=== PATIENT | female | born 1940 | race Caucasian/White ===

== ENCOUNTER → 2021-04-15 | Outpatient (CLI) | payer MEDICARE | END | disposition home or self-care (01) | LOC: CFH 09:14 | PROVIDERS: ATTEND Internal Medicine Hematology & Oncology | DX: C79.51 Secondary malignant neoplasm of bone (principal); C50.111 Malignant neoplasm of central portion of right female breast; Z85.3 Personal history of malignant neoplasm of breast | CPT/HCPCS: 77062; 77066; 78815; A9552; G0279 ==

== ENCOUNTER 2021-04-20 08:21 | Day surgery (SDC) | payer MEDICARE ==
[~2021-04-20] VITALS: Ht 167.6 cm; Wt 61.1 kg
[2021-04-20] MEDS ORDERED: OMEP-110 PO (08:56)
[2021-04-20] MEDS ORDERED: TAMO20TA PO (08:56)
[2021-04-20] MEDS ORDERED: ACET-1600 PO (08:56)
[2021-04-20] MEDS ORDERED: NAPR220C2 PO (08:56)
[2021-04-20 09:02] VITALS: BP 178/103
[2021-04-20] MEDS ORDERED: CHLORHEXIDINE 15 ML UDC ONE (09:25)
[2021-04-20] MEDS ORDERED: CHLORHEXIDINE 15 ML UDC PO ONE (09:30)
[2021-04-20] MEDS ORDERED: SODIUM CHLORIDE 0.9% 1,000 ML IV SCH (09:30)
[2021-04-20] MEDS ORDERED: MIDAZOLAM 1 MG/ML, 5ML ONE (09:54)
[2021-04-20] MEDS ORDERED: NALOXONE 1 MG/ML, 2ML ONE (09:55)
[2021-04-20] MEDS ORDERED: FENTANYL PF 100 MCG/2ML ONE ×2 (09:55)
[2021-04-20] MEDS ORDERED: FLUMAZENIL 0.1 MG/1 ML, 5ML ONE (09:55)
== END 2021-04-20 12:05 | disposition home or self-care (01) ==
LOC: OUT 08:21
PROVIDERS: ATTEND Internal Medicine Hematology & Oncology
DX: C79.51 Secondary malignant neoplasm of bone (principal); C50.111 Malignant neoplasm of central portion of right female breast; K21.9 Gastro-esophageal reflux disease without esophagitis; M81.8 Other osteoporosis without current pathological fracture; M41.86 Other forms of scoliosis, lumbar region; Z79.899 Other long term (current) drug therapy; Z91.040 Latex allergy status
CPT/HCPCS: 20225; 77012; 88307; 88341; 88342; 88360; 99156; 99157; J2250; J3010; J7030; 88311; J2310

== ENCOUNTER → 2021-05-24 | Outpatient (CLI) | payer MEDICARE ==
[~2021-05-24] MED LIST: ACET-1600 PO; NAPR220C2 PO; OMEP-110 PO; TAMO20TA PO
== END | disposition home or self-care (01) ==
LOC: ROC 09:11
PROVIDERS: ATTEND Radiology Radiation Oncology
DX: C50.111 Malignant neoplasm of central portion of right female breast (principal); C79.51 Secondary malignant neoplasm of bone; Z79.899 Other long term (current) drug therapy
CPT/HCPCS: G0463

== ENCOUNTER 2021-06-15 07:30 | Outpatient (CLI) | payer MEDICARE | END 2021-06-15 23:59 | disposition home or self-care (01) | LOC: ROC 07:30 | PROVIDERS: ATTEND Radiology Radiation Oncology | DX: Z08 Encounter for follow-up examination after completed treatment for malignant neoplasm (principal); Z85.3 Personal history of malignant neoplasm of breast; Z85.830 Personal history of malignant neoplasm of bone; Z79.899 Other long term (current) drug therapy | CPT/HCPCS: G0463 ==